=== PATIENT | female | born 1960 | race Two or more races ===

== ENCOUNTER 2017-07-03 16:55 | Inpatient (IN) | payer MEDICAID ==
[~2017-07-03] VITALS: Ht 157.5 cm; Wt 89.8 kg
[2017-07-03 19:09] LABS: BASOPHILS % 0.7 % (0.0-2.0); EOSINOPHILS % 3.8 % (0.0-5.0); HEMATOCRIT. 38.4 % (36.0-48.0); HEMOGLOBIN. 13.2 g/dL (12.0-16.0); MEAN CORPUSCULAR HEMOGLOBIN 27.7 pg (28.0-32.0); MEAN CORPUSCULAR VOLUME 80.8 fL (81.0-99.0); MONOCYTES % 9.5 % (2.0-8.0); PLATELET 328 x1000/uL (130-400); RED BLOOD CELL COUNT 4.75 mill/uL (4.2-5.4)
[2017-07-03 19:10] LABS: CHLORIDE 104 mEq/L (98-107)
[2017-07-03 19:11] LABS: PROTHROMBIN TIME 10.6 sec (9.4-11.6)
[2017-07-03 19:16] LABS: CARBON DIOXIDE 24 mEq/L (21-32)
[2017-07-03 19:19] LABS: TROPONIN I 0.32 ng/mL (0.00-0.04)
[2017-07-03] MEDS ORDERED: SODIUM CHLORIDE 0.9% 1,000 ML IV ONE (20:00)
[2017-07-03] MEDS ORDERED: MECLIZINE 25MG TABLET PO ONE (20:00)
[2017-07-03] MEDS ORDERED: ASPIRIN 325MG EC TABLET PO ONE (20:15)
[2017-07-03] MEDS ORDERED: LORAZEPAM 2MG/ML CPJ IV PRN (21:30)
[2017-07-03] MEDS ORDERED: CLONIDINE 0.1MG TABLET PO PRN (21:30)
[2017-07-03] MEDS ORDERED: ONDANSETRON HCL 4MG/2ML VIAL IV PRN (21:30)
[2017-07-03] MEDS ORDERED: ENOXAPARIN 40MG/0.4ML SYR SUBCUT SCH (21:30)
[2017-07-03] MEDS ORDERED: MAGNESIUM/ALUMINUM HYDROXIDE/SIMETHICONE 30ML UDC PO PRN (21:30)
[2017-07-03] MEDS: ACETAMINOPHEN 325MG TABLET PO PRN (22:09)
[2017-07-03] MEDS ORDERED: HYDROMORPHONE HCL/PF 2MG/ML CPJ IV PRN (22:30)
[2017-07-03 23:02] LABS: CREATINE KINASE MB FRACTION 3.7 ng/mL (0.5-3.6)
[2017-07-03 23:05] LABS: TROPONIN I 0.53 ng/mL (0.00-0.04)
[2017-07-04] VITALS (12 sets, daily range): BP systolic 70–148; BP diastolic 30–71
[2017-07-04] MEDS: IPRATROPIUM/ALBUTEROL 0.5-3(2.5)MG/3ML NEB HHN SCH ×4 (00:50→21:50)
[2017-07-04] MEDS ORDERED: ENOXAPARIN 30MG/0.3ML SYR SUBCUT SCH ×3 (01:00→09:00)
[2017-07-04 01:07] LABS: *AMPHETAMINES SCREEN URINE NEGATIVE (NEGATIVE); *BARBITURATES SCREEN URINE NEGATIVE (NEGATIVE); *BENZODIAZEPINES SCREEN URINE NEGATIVE (NEGATIVE); *COCAINE SCREEN URINE NEGATIVE (NEGATIVE); CANNABINOID URINE SCREEN NEGATIVE (NEGATIVE); METHADONE URINE SCREEN NEGATIVE (NEGATIVE); OPIATES URINE SCREEN NEGATIVE (NEGATIVE); PHENCYCLIDINE URINE SCREEN NEGATIVE (NEGATIVE)
[2017-07-04] MEDS ORDERED: KETOPROFEN PO (01:39)
[2017-07-04] MEDS ORDERED: SIMV20TA6 PO (01:39)
[2017-07-04] MEDS ORDERED: DIPH25CA83 PO (01:39)
[2017-07-04] MEDS ORDERED: METF-517 PO (01:39)
[2017-07-04] MEDS ORDERED: HYDR25TA PO (01:39)
[2017-07-04] MEDS ORDERED: DEXT 5%/0.45% NACL KCL 20MEQ/L 1,000 ML IV ONE (02:00)
[2017-07-04] MEDS ORDERED: DEXTROSE 50% WATER 50ML SYRINGE IV PRN (05:45)
[2017-07-04 06:28] LABS: BASOPHILS % 0.7 % (0.0-2.0); EOSINOPHILS % 6.2 % (0.0-5.0); HEMATOCRIT. 34.9 % (36.0-48.0); LYMPHOCYTES % 41.5 % (20.0-50.0); MEAN CORPUSCULAR HEMOGLOBIN 27.5 pg (28.0-32.0); MEAN CORPUSCULAR VOLUME 79.8 fL (81.0-99.0); MEAN PLATELET VOLUME 7.6 fl (7.4-10.4); NEUTROPHILS % 41.6 % (40.0-76.0); PLATELET 291 x1000/uL (130-400); RED BLOOD CELL COUNT 4.37 mill/uL (4.2-5.4); RED CELL DISTRIBUTION WIDTH 13.6 % (11.6-14.6)
[2017-07-04 07:09] LABS: CHLORIDE 105 mEq/L (98-107)
[2017-07-04] MEDS: BLOOD SUGAR DIAGNOSTIC STRIP TEST SCH ×4 (07:20→20:25)
[2017-07-04 07:25] LABS: CARBON DIOXIDE 24 mEq/L (21-32); TROPONIN I 0.26 ng/mL (0.00-0.04)
[2017-07-04 08:20] LABS: BG BASE EXCESS -0.2 mmol/L (-2.0-2.0); BG CARBOXYHEMOGLOBIN 0.5 % (0.5-1.5); BG FRACTION INSPIRED OXYGEN 21; BG HCO3 ACT 24.2 mmol/L (22.0-26.0); BG METHEMOGLOBIN 0.3 % (0.0-1.5); BG OXYHEMOGLOBIN 94.2 % (94.0-97.0); BG PCO2 38.7 mmHg (35.0-45.0); BG PH 7.414 (7.350-7.450); BG PO2 77.1 mmHg (75.0-100.0); BG SAMPLE SITE RIGHT BRACHIAL; BG VENT MODE ROOM AIR
[2017-07-04] MEDS ORDERED: POTASSIUM CHLORIDE 20MEQ TABLET SR PO SCH (09:00)
[2017-07-04] MEDS: INSULIN LISPRO 100 UNITS/ML SUBCUT SCH ×4 (10:12→20:32)
[2017-07-04] MEDS ORDERED: ASPIRIN 325MG EC TABLET PO NR (10:30)
[2017-07-04] MEDS ORDERED: LISINOPRIL 5MG TABLET PO NR (10:45)
[2017-07-04] MEDS ORDERED: DIPHENHYDRAMINE 25MG CAPSULE PO PRN (10:45)
[2017-07-04] MEDS ORDERED: GLIPIZIDE (11:05)
[2017-07-04] MEDS ORDERED: HUMULIN SUBCUT (11:06)
[2017-07-04] MEDS ORDERED: HEPARIN 25,000 UNITS PREMIX 500 ML IV SCH ×2 (11:15→13:00)
[2017-07-04] MEDS ORDERED: HEPARIN 5000 UNITS/ML VIAL IV ONE (11:15)
[2017-07-04] MEDS: LOSARTAN POTASSIUM 25 MG TABLET PO SCH ×2 (11:42→20:25)
[2017-07-04] MEDS ORDERED: NON FORMULARY PATIENT HOME MED EA XX SCH (11:45)
[2017-07-04] MEDS: INSULIN DETEMIR UD 100 UNITS/ML SYR SUBCUT SCH (11:45)
[2017-07-04] MEDS: NITROGLYCERIN OINT 1GM/INCH UDPKT TD SCH ×3 (12:59→20:00)
[2017-07-04] MEDS ORDERED: HEPARIN 60 UNITS/KG BOLUS IV SCH (13:00)
[2017-07-04] MEDS ORDERED: HEPARIN BOLUS PRN aPTT 30-44 IV (13:00)
[2017-07-04] MEDS ORDERED: HEPARIN BOLUS PRN aPTT <30 IV (13:00)
[2017-07-04] MEDS: POTASSIUM CHLORIDE 20MEQ TABLET SR PO SCH (17:07)
[2017-07-04] MEDS: GLIPIZIDE 10MG TABLET PO SCH (17:08)
[2017-07-04] MEDS: METFORMIN HCL 500MG TABLET PO SCH (17:08)
[2017-07-04] MEDS: ENOXAPARIN 80MG/0.8ML SYR SUBCUT SCH (20:31)
[2017-07-04] MEDS ORDERED: ATORVASTATIN CALCIUM 10MG TABLET PO SCH (21:00)
[2017-07-05] VITALS (14 sets, daily range): BP systolic 82–139; BP diastolic 45–69
[2017-07-05] MEDS: NITROGLYCERIN OINT 1GM/INCH UDPKT TD SCH ×6 (03:52→20:00)
[2017-07-05] MEDS: GLIPIZIDE 10MG TABLET PO SCH ×2 (06:17→17:01)
[2017-07-05] MEDS: METFORMIN HCL 500MG TABLET PO SCH ×2 (06:17→17:01)
[2017-07-05] MEDS: POTASSIUM CHLORIDE 20MEQ TABLET SR PO SCH ×2 (06:17→17:18)
[2017-07-05] MEDS: BLOOD SUGAR DIAGNOSTIC STRIP TEST SCH ×3 (06:24→16:54)
[2017-07-05 07:04] LABS: BASOPHILS % 0.8 % (0.0-2.0); HEMATOCRIT. 38.7 % (36.0-48.0); LYMPHOCYTES % 31.9 % (20.0-50.0); MEAN CORPUSCULAR HEMOGLOBIN 27.3 pg (28.0-32.0); MEAN PLATELET VOLUME 8.2 fl (7.4-10.4); MONOCYTES % 7.4 % (2.0-8.0); NEUTROPHILS % 55.9 % (40.0-76.0); PLATELET 369 x1000/uL (130-400); RED BLOOD CELL COUNT 4.78 mill/uL (4.2-5.4); RED CELL DISTRIBUTION WIDTH 13.9 % (11.6-14.6)
[2017-07-05] MEDS: IPRATROPIUM/ALBUTEROL 0.5-3(2.5)MG/3ML NEB HHN SCH ×4 (07:37→20:24)
[2017-07-05 07:43] LABS: CARBON DIOXIDE 22 mEq/L (21-32); CHLORIDE 108 mEq/L (98-107); CREATINE KINASE 152 IU/L (26-192)
[2017-07-05 07:50] LABS: CREATINE KINASE MB FRACTION 0.7 ng/mL (0.5-3.6); TROPONIN I 0.13 ng/mL (0.00-0.04)
[2017-07-05] MEDS: ENOXAPARIN 80MG/0.8ML SYR SUBCUT SCH (08:30)
[2017-07-05] MEDS: INSULIN LISPRO 100 UNITS/ML SUBCUT SCH ×3 (08:30→17:00)
[2017-07-05] MEDS: LOSARTAN POTASSIUM 25 MG TABLET PO SCH (08:30)
[2017-07-05] MEDS ORDERED: LISINOPRIL 5MG TABLET PO SCH (09:00)
[2017-07-05] MEDS ORDERED: ASPIRIN 325MG EC TABLET PO SCH (09:00)
[2017-07-05] MEDS ORDERED: FENOFIBRATE NANOCRYSTALLIZED 145MG TABLET PO SCH (10:00)
[2017-07-05] MEDS ORDERED: LINAGLIPTIN 5MG TABLET PO SCH (10:08)
[2017-07-05] MEDS ORDERED: SODIUM CHLORIDE 0.9% 1,000 ML IV ONE (11:00)
[2017-07-05] MEDS: INSULIN DETEMIR UD 100 UNITS/ML SYR SUBCUT SCH (11:14)
[2017-07-05] MEDS: ACETAMINOPHEN 325MG TABLET PO PRN (17:14)
== END 2017-07-05 20:37 | disposition short-term general hospital (02) | DRG 190 ==
LOC: ER 16:55 → EDSEX 16:55 → 6WST 21:20 → ENRESERV 23:15 → 6WST 07-04 00:10 → 3WST 07-04 12:13
PROVIDERS: ADMIT Internal Medicine Geriatric Medicine; ATTEND Internal Medicine Geriatric Medicine
DX: I21.4 Non-ST elevation (NSTEMI) myocardial infarction (principal); N17.9 Acute kidney failure, unspecified; I11.9 Hypertensive heart disease without heart failure; E11.59 Type 2 diabetes mellitus with other circulatory complications; E78.5 Hyperlipidemia, unspecified; E78.00 Pure hypercholesterolemia, unspecified; E78.1 Pure hyperglyceridemia; E87.6 Hypokalemia; Z79.4 Long term (current) use of insulin; Z79.899 Other long term (current) drug therapy; Z90.49 Acquired absence of other specified parts of digestive tract
CPT/HCPCS: 36415; 36600; 70450; 71010; 80048; 80053; 80061; 80305; 82270; 82375; 82550; 82553; 82805; 82962; 83036; 83735; 83880; 84443; 84484; 85025; 85610; 85730; 87086; 93005; 93306; 93970; 94664; 96360; 96361; 99285; J1644; J1650; J1815; J7030; J7620; J8597